=== PATIENT | male | born 1990 | race Caucasian/White ===

== ENCOUNTER 2020-04-10 14:00 | Outpatient (RCR) | payer OTHER, SELFPAY ==
--- NOTE | 2020-04-08 07:46 | HP.OTEVAL_ITS ---
Patient's Visit Information REUBEN URBAN is a 29 year old M, referred to Occupational Therapy by Dr. Luisana Fairchild MD, with a diagnosis of extensor tendon lac. IF, MF, RF and SF. open displaced fx middle phal L RF. Date of Evaluation: 04/01/20 Occupational Therapist: Brie Grewal, PHILLIP/Asif, CHT - Subjective This 29 year old male was seen for OT eval with Dx of extensor tendon laceration of IF, MF, RF and SF. pt also has open displaced fracture Middle phalanx of left ring finger initial -. DOI 03/17/20 and DOS 03/17/20 pt 2 weeks one day. pt arrives with orthosis on keeping fingers in ext- pt demo understanding of wrist and MCP ROM ex. that he was instructed on. pt demo understanding of wound care- - Pain left hand 0 Pain Intensity Range: 4 - ROM Wrist: right 80/70 left 45/40 MP: right ROM Comments: pt demo composite fist of right hand. left unable due to fx. left MCP of IF 60. left MCP of MF 60. left MCP of RF 50. left MCP of LF 30 - Strength Security Guard Dispatcher: right 110# left NT Lateral Pinch: right 19# left NT Tripod Pinch: right 24# left NT Tip-to-Tip Pinch: right 12# left NT - Sensation Sensation Comments: padds of fingers sensation feels normal at 2.83 monofilaments. around incision numbness - Quick DASH-Disab of Arm,Shoulder& Hand Quick DASH Score: 56.6650 - Goals Goal:100% adherence to protocol: Yes Comment: extensor tendon protocol Goal:Daily scar massage when approriate: Yes Goal:ROM equal to unaffected hand: Yes Goal:No pain with affected hand use: Yes Goal:Full use of affected hand in daily activities including: Yes Goal:Decrease scar hypersensitivity: Yes - Rehabilitation General Assessment: Pt demo with marshall healing extensor tendon structures and pinning of RF and MF due to extensor tendon laceration of IF, MF, RF and SF. pt also has open displaced fracture Middle phalanx of left ring finger. DOS 03/17/20 pt 2 weeks one day. pt arrives with orthosis on keeping fingers in ext- pt demo understanding of wrist and MCP ROM ex. that he was instructed on. pt demo understanding of wound care- Therapsit will continue to monitor pts healing and progress pt with extensor tendon protocol, scar mtg and edema control until pins removed for further ROM and transition to use of left hand with ADls and IADLs. Pt demo undstanding and agree to POC Rehabilitation Potential: Good - Anticipated Interventions A/AAROM/PROM, Edema Control, Scar Care, Desensitization, Sensory Retraining, Wound Care, Modalities, Orthoses, Ergonomic Education, Fine Motor Coord/Saul - Visit Plan Frequency: 1x/Week Duration: 2 Months TEXT: Thank you for the opportunity to evaluate your patient. For Medicare and Medicare HMO plans, please review the plan of care and approve it. It will need to be FAXED BACK to us at [phone] for Medicare purposes. Please let me know if there are questions or concerns regarding this plan of care. Physician Signature: Date:
--- NOTE | 2020-09-02 08:38 | HP.OTDCNRP_ITS ---
REUBEN ORTEGACARLOZULEIMA was seen in my office for initial evaluation on 04/01/20. The following Plan of Care was established for this patient: Initial Frequency: 1x/Week Initial Duration: 2 Months Plan: cont with HEP Anticipated Interventions: A/AAROM/PROM, Edema Control, Scar Care, D esensitization, Sensory Retraining, Wound Care, Modalities, Orthoses, Ergonomic Education, Fine Motor Coord/Saul This patient was last seen in our office 04/01/20. Pertinent comments regarding their Occupational therapy will appear below: pt was seen for 2 OT session only. Due to time lapse in services pt d/c At this point I will be discontinuing this patient from occupational therapy. I would be happy to see this patient again in the future if found appropriate by the physician. Thank you! Brie Grewal, OTR/L, CHT
== END 2020-04-10 19:00 | disposition home or self-care (01) ==
LOC: OT 14:00
PROVIDERS: PCP Family Medicine; Referring Provider Orthopaedic Surgery Hand Surgery; Visit Provider Orthopaedic Surgery Hand Surgery
DX: S61.209D Unspecified open wound of unspecified finger without damage to nail, subsequent encounter (principal); S56.429D Laceration of extensor muscle, fascia and tendon of unspecified finger at forearm level, subsequent encounter; S62.625D Displaced fracture of middle phalanx of left ring finger, subsequent encounter for fracture with routine healing; S62.623D Displaced fracture of middle phalanx of left middle finger, subsequent encounter for fracture with routine healing; W31.2XXD Contact with powered woodworking and forming machines, subsequent encounter
CPT/HCPCS: 97166; 97530